=== PATIENT | male | born 1945 | race Caucasian/White ===

== ENCOUNTER 2018-07-08 00:33 | Emergency (ER) | payer MEDICARE ==
[~2018-07-08] VITALS: Ht 185.4 cm; Wt 106.6 kg
--- OUTSIDE RECORDS SUMMARY | 2018-07-08 00:36 | XMS REPORT | Clinical Summary ---
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 0 (LOPRESSOR) 50 MG tablet 6 Active clopidogrel (PLAVIX) 75 75 mg. 0 mg tablet 6 Active Problems Problem Noted Date Closed nondisplaced fracture of distal phalanx of thumb 12/14/2015 Social History Date Tobacco Use Types Packs/Day Years Used Never Assessed Sex Assigned at Date Recorded Not on file Industry Job Start Date Occupation Not on file Not on file Not on file Travel End Travel History Travel Start No recent travel history available. Last Filed Vital Signs Not on file Plan of Treatment Health Maintenance Due Date Last Done Comments COLON CANCER SCREENING 05/19/1995 SHINGLES VACCINES (#1) 05/19/1995 65+ PNEUMOCOCCAL VACCINE 2010 (1 of 2 - PCV13) PNEUMOCOCCAL 2010 POLYSACCHARIDE VACCINE AGE 65 AND OVER INFLUENZA VACCINE 10/08/2018 Results Not on fileafter 07/07/2017 Insurance Payer Benefit Subscriber ID Type Phone Address Plan / Group WORKERS COMP MISC xxxxxxxxx Workers WORKER'S Comp COMP Guarantor Name Account Relation to Date of Phone Billing Address Type Patient [id number] Workers Employer 1945 [address] (Home) [place] [address] Yan Culp Personal/F Self 1945 [address] (Home) [place] [address] Advance Directives Patient has advance care planning documents on file. For more information, ramírez jaquez contact: Rajeev Soto [address] [place] [id number]
--- OUTSIDE RECORDS SUMMARY | 2018-07-08 00:36 | XMS REPORT | Clinical Summary ---
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 Active folic acid (FOLVITE) 1 MG Take 1 mg by 0 tablet mouth daily. Active pantoprazole (PROTONIX) Take 40 mg by 0 40 MG tablet mouth daily. Active furosemide (LASIX) 20 MG Take 20 mg by 0 tablet mouth daily. Active Problems Problem Noted Date Subdural hematoma 01/26/2016 Social History Date Tobacco Use Types Packs/Day Years Used Never Smoker Alcohol Use Drinks/Week oz/Week Comments No Sex Assigned at Date Recorded Not on file Industry Job Start Date Occupation Not on file Not on file Not on file Travel End Travel History Travel Start No recent travel history available. Last Filed Vital Signs Not on file Plan of Treatment Not on file Results Not on fileafter 07/07/2017 Insurance Payer Benefit Subscriber ID Type Phone Address Plan / Group GENERIC WORKERS' COMP GENERIC xxxxxxx WORKERS' COMP [employer] K[employer]SEY[employer]ARE xxxxxxxxxxx MEDICARE ADV [address]a G[address]mez (Home) [place] [id number] Advance Directives For more information, please contact: [facility] [address] [place], [place] [id number] Date Inactivated Comments Code Status Date Activated 01/29/2016 5:37 PM Full Code 01/26/2016 2:59 PM This code status was determined by: Patient
--- OUTSIDE RECORDS SUMMARY | 2018-07-08 00:37 | XMS REPORT | Summary of Care ---
Author Author [facility] Organization [facility] Address Unknown Phone Unavailable Encounter SONIA Bowling(CHAYITO) [id number] Date(s): 01/02/16 - 01/03/16 [facility] [address] [place] [address]- Final: Subdural hemorrhage due to injury Discharge Disposition: Home or Self Care Attending Physician: Marcella Kidd MD Admitting Physician: Marcella Kidd MD Referring Physician: Warren Posadas DO Vital Signs 1 2 3 Most recent to oldest [Reference Range]: 185.42 cm (01/02/16 2:58 PM) Height 97.3 DegF (01/03/16 3:41 PM) 99.3 DegF *HI* (01/03/16 12:00 PM) 98.2 DegF (01/03/16 7:45 AM) Temperature Oral [96.4-99.1 DegF] 154/74 mmHg *HI* (01/03/16 3:41 PM) 159/73 mmHg *HI* (01/03/16 12:00 PM) 157/80 mmHg *HI* (01/03/16 7:45 AM) Blood Pressure [90-140/60-90 mmHg] 20 BRMIN (01/03/16 3:41 PM) 20 BRMIN (01/03/16 12:00 PM) 20 BRMIN (01/03/16 7:45 AM) Respiratory Rate [14-20 BRMIN] 73 bpm (01/03/16 3:41 PM) 76 bpm (01/03/16 12:00 PM) 75 bpm (01/03/16 7:45 AM) Peripheral Pulse Rate [60-100 bpm] 104 kg (01/02/16 2:58 PM) Weight 30.25 m2 (01/02/16 2:58 PM) Body Mass Index Problem List Condition Effective Dates Status Health Status Informant Anxiety(Confirmed) Active Coronary Active arteriosclerosis(Con firmed) Diabetes Active mellitus(Confirmed) H/O: 2012 Active stroke(Confirmed) Hypertension(Confirm Active ed) Neuropathy(Confirmed Active ) Hx of Active CABG(Confirmed) Subacute subdural 01/02/16 Active hematoma(Confirmed) Allergies, Adverse Reactions, Alerts Substance Reaction Severity Status NKDA Active Medications ALPRAZOLam 0.25 mg oral tablet 0.25 mg=1 tab, PO, TID, PRN Sleep, # 30 tab, 0 Refill(s) Start Date: 01/02/16 Stop Date: 01/12/16 Status: Ordered ALPRAZOLam 0.25 mg oral tablet 0.25 mg, 1 tab, Route: PO, Drug form: TAB, TID, Dosing Weight 104, kg, PRN Sleep , Start date: 01/03/16 14:54:00 CDT, Duration: 30 day, Stop date: 02/02/16 14:53 :00 LINE APPLIANCE ASSEMBLER Start Date: 01/03/16 Stop Date: 01/03/16 Status: Discontinued BD Normal Saline Flush 10 mL, Route: IVP, Drug Form: INJ, PRN, PRN Line Flush, Start date: 01/02/16 15: 16:00 CDT, Duration: 30 day, Stop date: 02/01/16 14:15:00 LINE APPLIANCE ASSEMBLER Notes: (Same as: BD Posiflush) Start Date: 01/02/16 Stop Date: 01/03/16 Status: Discontinued calcium carbonate 500 mg (200 mg elemental calcium) oral tablet 1,000 mg, 2 tab, Route: PO, Drug form: CHEWTAB, PRN, Dosing Weight 104, kg, PRN Abnormal Lab Result, FOR ICU USE ONLY, Start date: 01/02/16 15:52:00 CDT, Durati on: 30 day, Stop date: 02/01/16 14:51:00 LINE APPLIANCE ASSEMBLER Notes: (Same As: Tums)Calcium Carbonate 500 xy=518 mg elemental calcium Dose=_ mg calcium carbonate ( mg elemental calcium) Start Date: 01/02/16 Stop Date: 01/03/16 Status: Discontinued calcium carbonate 500 mg (200 mg elemental calcium) oral tablet 500 mg, 1 tab, Route: PO, Drug form: CHEWTAB, PRN, Dosing Weight 104, kg, PRN Ab normal Lab Result, FOR ICU USE ONLY, Start date: 01/02/16 15:52:00 CDT, Duration : 30 day, Stop date: 02/01/16 14:51:00 LINE APPLIANCE ASSEMBLER Notes: (Same As: Tums)Calcium Carbonate 500 kh=251 mg elemental calcium Dose=_ mg calcium carbonate ( mg elemental calcium) Start Date: 01/02/16 Stop Date: 01/03/16 Status: Discontinued calcium gluconate 1 gm, 50 mL, Route: IVPB, Drug form: INJ, PRN, Dosing Weight 104, kg, PRN Abnorm al Lab Result, Start date: 01/02/16 15:52:00 CDT, Duration: 30 day, Stop date: 04/02/15 14:51:00 LINE APPLIANCE ASSEMBLER, FOR ICU USE ONLY Notes: WASTE: F/P - Sink; E - Municipal Trash Bin Start Date: 01/02/16 Stop Date: 01/03/16 Status: Discontinued Dextrose 50% Syringe 25 gm, 50 mL, Route: IVP, Drug Form: INJ, Dosing Weight 104, kg, PRN, PRN Blood Glucose Results, Start date: 01/02/16 15:52:00 CDT, Duration: 30 day, Stop date: 02/01/16 14:51:00 LINE APPLIANCE ASSEMBLER Start Date: 01/02/16 Stop Date: 01/03/16 Status: Discontinued Dextrose 50% Syringe 12.5 gm, 25 mL, Route: IVP, Drug Form: INJ, Dosing Weight 104, kg, PRN, PRN Bloo d Glucose Results, Start date: 01/02/16 15:52:00 CDT, Duration: 30 day, Stop mary e: 02/01/16 14:51:00 LINE APPLIANCE ASSEMBLER Start Date: 01/02/16 Stop Date: 01/03/16 Status: Discontinued furosemide 20 mg oral tablet 20 mg=1 tab, PO, BID, 0 Refill(s) Start Date: 01/02/16 Status: Ordered furosemide 20 mg oral tablet 20 mg, 1 tab, Route: PO, Drug form: TAB, BID, Dosing Weight 104, kg, Start date: 01/03/16 17:00:00 CDT, Duration: 30 day, Stop date: 02/02/16 9:00:00 LINE APPLIANCE ASSEMBLER Notes: (Same as: Lasix) May cause GI upset. Give with food or milk. Start Date: 01/03/16 Stop Date: 01/03/16 Status: Discontinued glucagon 1 mg, Route: IM, Drug form: PDR/INJ, PRN, Dosing Weight 104, kg, PRN Blood Gluco se Results, Start date: 01/02/16 15:52:00 CDT, Duration: 30 day, Stop date: 01/09 06/23 14:51:00 LINE APPLIANCE ASSEMBLER Start Date: 01/02/16 Stop Date: 01/03/16 Status: Discontinued hydrALAZINE 10 mg, 0.5 mL, Route: IVP, Drug form: INJ, Q4H, Dosing Weight 104, kg, PRN Victor neo BP, SBP >150, Start date: 01/02/16 15:54:00 CDT, Duration: 30 day, Stop date: 02/01/16 15:53:00 LINE APPLIANCE ASSEMBLER, HTN Notes: (Same as: Apresoline)Push over 5 minutes Start Date: 01/02/16 Stop Date: 01/03/16 Status: Discontinued insulin aspart 2 unit, 0.02 mL, Route: SUB-Q, Drug form: SOLN, TID-Before Meals, Dosing Weight 104, kg, PRN Blood Glucose Results, Start date: 01/02/16 15:52:00 CDT, Duration: 30 day, Stop date: 02/01/16 15:51:00 LINE APPLIANCE ASSEMBLER Notes: Roll in palms of hands gently; Do not shake vigorously. (Same as: Amari Echevarria)"single patient use only"WASTE: F/P - Black; E - Municipal Trash Bin Stable f or 28 days at room temperature.Expires in days from Date Start Date: 01/02/16 Stop Date: 01/03/16 Status: Discontinued insulin aspart 6 unit, 0.06 mL, Route: SUB-Q, Drug form: SOLN, TID-Before Meals, Dosing Weight 104, kg, PRN Blood Glucose Results, Start date: 01/02/16 15:52:00 CDT, Duration: 30 day, Stop date: 02/01/16 15:51:00 LINE APPLIANCE ASSEMBLER Notes: Roll in palms of hands gently; Do not shake vigorously. (Same as: NovoARABELLA Echevarria)"single patient use only"WASTE: F/P - Black; E - Municipal Trash Bin Stable f or 28 days at room temperature.Expires in days from Date Start Date: 01/02/16 Stop Date: 01/03/16 Status: Discontinued insulin aspart 4 unit, 0.04 mL, Route: SUB-Q, Drug form: SOLN, TID-Before Meals, Dosing Weight 104, kg, PRN Blood Glucose Results, Start date: 01/02/16 15:52:00 CDT, Duration: 30 day, Stop date: 02/01/16 15:51:00 LINE APPLIANCE ASSEMBLER Notes: Roll in palms of hands gently; Do not shake vigorously. (Same as: NovoARABELLA Echevarria)"single patient use only"WASTE: F/P - Black; E - Municipal Trash Bin Stable f or 28 days at room temperature.Expires in days from Date Start Date: 01/02/16 Stop Date: 01/03/16 Status: Discontinued insulin aspart 10 unit, 0.1 mL, Route: SUB-Q, Drug form: SOLN, TID-Before Meals, Dosing Weight 104, kg, PRN Blood Glucose Results, Start date: 01/02/16 15:52:00 CDT, Duration: 30 day, Stop date: 02/01/16 15:51:00 LINE APPLIANCE ASSEMBLER Notes: Roll in palms of hands gently; Do not shake vigorously. (Same as: NovoARABELLA Echevarria)"single patient use only"WASTE: F/P - Black; E - Municipal Trash Bin Stable f or 28 days at room temperature.Expires in days from Date Start Date: 01/02/16 Stop Date: 01/03/16 Status: Discontinued insulin aspart 8 unit, 0.08 mL, Route: SUB-Q, Drug form: SOLN, TID-Before Meals, Dosing Weight 104, kg, PRN Blood Glucose Results, Start date: 01/02/16 15:52:00 CDT, Duration: 30 day, Stop date: 02/01/16 15:51:00 LINE APPLIANCE ASSEMBLER Notes: Roll in palms of hands gently; Do not shake vigorously. (Same as: Amari Echevarria)"single patient use only"WASTE: F/P - Black; E - Municipal Trash Bin Stable f or 28 days at room temperature.Expires in days from Date Start Date: 01/02/16 Stop Date: 01/03/16 Status: Discontinued labetalol 10 mg, 2 mL, Route: IV, Drug form: INJ, Q1H, Dosing Weight 104, kg, PRN Elevated BP, SBP >150, Start date: 01/02/16 15:54:00 CDT, Duration: 30 day, Stop date: 02/01/16 14:53:00 LINE APPLIANCE ASSEMBLER, HTN Notes: (Same as: Normodyne, Trandate)Push over 2 minutes Give bolus over 2-3 mi nutes. Start Date: 01/02/16 Stop Date: 01/03/16 Status: Discontinued lansoprazole 30 mg, 1 cap, Route: PO, Drug form: DRC, Daily, Dosing Weight 104, kg, Start mary e: 01/04/16 9:00:00 CDT, Duration: 30 day, Stop date: 02/02/16 9:00:00 LINE APPLIANCE ASSEMBLER Notes: (Same as:Prevacid)Take 1 hour before or 2 hours after meal; "Do Not Crush " Start Date: 01/04/16 Stop Date: 01/03/16 Status: Canceled lansoprazole 30 mg oral delayed release capsule 30 mg=1 cap, PO, Daily, # 30 cap, 0 Refill(s) Start Date: 01/02/16 Status: Ordered levETIRAcetam 500 mg, 1 tab, Route: PO, Drug form: TAB, Q12H, Dosing Weight 104, kg, Start mary e: 01/03/16 9:00:00 CDT, Duration: 30 day, Stop date: 02/01/16 21:00:00 LINE APPLIANCE ASSEMBLER Notes: (Same as:Keppra) Start Date: 01/03/16 Stop Date: 01/03/16 Status: Discontinued levETIRAcetam + sodium chloride 0.9% INJ 100 mL 500 mg, Route: IVPB, ONCE, Dosing Weight 104, kg, Start date: 01/02/16 15:10:00 CDT, Stop date: 01/02/16 15:10:00 CDT Notes: Same as KeppraMix with 100 mL NS, LR or D5W MEDICATION WASTE Prod uct Size: 500 mgProduct Wasted: _0__ mg Start Date: 01/02/16 Stop Date: 01/02/16 Status: Completed levETIRAcetam 500 mg oral tablet 500 mg=1 tab, PO, Q12H, # 60 tab, 1 Refill(s) Start Date: 01/03/16 Status: Ordered magnesium oxide 800 mg, 2 tab, Route: PO, Drug form: TAB, PRN, Dosing Weight 104, kg, PRN Abnorm al Lab Result, FOR ICU USE ONLY, Start date: 01/02/16 15:52:00 CDT, Duration: 30 day, Stop date: 02/01/16 14:51:00 LINE APPLIANCE ASSEMBLER Notes: (Same as: Mag-Ox 400)Magnesium oxide [id number] elemental magnesiumDose= ____mg magnesium oxide (___mg elemental magnesium) Start Date: 01/02/16 Stop Date: 01/03/16 Status: Discontinued magnesium sulfate 2 gm, 50 mL, Route: IVPB, Drug form: INJ, PRN, Dosing Weight 104, kg, PRN Abnorm al Lab Result, Start date: 01/02/16 15:52:00 CDT, Duration: 30 day, Stop date: 04/02/15 14:51:00 LINE APPLIANCE ASSEMBLER, FOR ICU USE ONLY Notes: WASTE: F/P - Sink; E - Municipal Trash Bin Start Date: 01/02/16 Stop Date: 01/03/16 Status: Discontinued metoprolol tartrate 50 mg, 1 tab, Route: PO, Drug form: TAB, Q12H, Dosing Weight 104, kg, Start date : 01/03/16 21:00:00 CDT, Duration: 30 day, Stop date: 02/02/16 9:00:00 LINE APPLIANCE ASSEMBLER Notes: (Same as: Lopressor) Start Date: 01/03/16 Stop Date: 01/03/16 Status: Canceled MiraLax 17 gm, 1 pkt, Route: PO, Drug form: PWDR, Daily, Dosing Weight 104, kg, Start da te: 01/03/16 9:00:00 CDT, Duration: 30 day, Stop date: 02/01/16 9:00:00 LINE APPLIANCE ASSEMBLER Notes: Dissolve in 8 oz of water or juice.(Same as: Miralax) Start Date: 01/03/16 Stop Date: 01/03/16 Status: Discontinued potassium chloride 20 mEq, 1 tab, Route: PO, Drug form: ERTAB, PRN, Dosing Weight 104, kg, PRN Abno rmal Lab Result, Start date: 01/02/16 15:52:00 CDT, Duration: 30 day, Stop date: 02/01/16 14:51:00 LINE APPLIANCE ASSEMBLER, FOR ICU USE ONLY Notes: (Same as: K-Dur 20)"Do Not Crush" With food and full glass of water Start Date: 01/02/16 Stop Date: 01/03/16 Status: Discontinued potassium chloride 20 mEq, 15 mL, Route: NJ, Drug form: LIQ, PRN, Dosing Weight 104, kg, PRN Abnorm al Lab Result, Start date: 01/02/16 15:52:00 CDT, Duration: 30 day, Stop date: 04/02/15 14:51:00 LINE APPLIANCE ASSEMBLER, FOR ICU USE ONLY Notes: (Same as: Potassium Chloride) Start Date: 01/02/16 Stop Date: 01/03/16 Status: Discontinued potassium chloride 10 mEq, 100 mL, Route: IVPB, Drug form: INJ, PRN, Dosing Weight 104, kg, PRN Abn ormal Lab Result, Via peripheral line, Start date: 01/02/16 15:52:00 CDT, Durati on: 30 day, Stop date: 02/01/16 14:51:00 LINE APPLIANCE ASSEMBLER, FOR ICU USE ONLY Notes: Infuse at a rate of 10 mEq/hr.(Same as: KCL) Start Date: 01/02/16 Stop Date: 01/03/16 Status: Discontinued potassium chloride 20 mEq, 100 mL, Route: IVPB, Drug form: INJ, PRN, Dosing Weight 104, kg, PRN Abn ormal Lab Result, Via central line, Start date: 01/02/16 15:52:00 CDT, Duration: 30 day, Stop date: 02/01/16 14:51:00 LINE APPLIANCE ASSEMBLER, FOR ICU USE ONLY Notes: (Same as: KCL) Infuse no faster than 10 mEq/hr if given peripherally. Start Date: 01/02/16 Stop Date: 01/03/16 Status: Discontinued potassium phosphate 30 mmol, 250 mL, Route: IVPB, Drug form: INJ, PRN, Dosing Weight 104, kg, PRN Ab normal Lab Result, Start date: 01/02/16 15:52:00 CDT, Duration: 30 day, Stop mary e: 02/01/16 14:51:00 LINE APPLIANCE ASSEMBLER, FOR ICU USE ONLY Notes: (Same as: K Phosphate.) Start Date: 01/02/16 Stop Date: 01/03/16 Status: Discontinued potassium phosphate 15 mmol, 250 mL, Route: IVPB, Drug form: INJ, PRN, Dosing Weight 104, kg, PRN Ab normal Lab Result, Start date: 01/02/16 15:52:00 CDT, Duration: 30 day, Stop mary e: 02/01/16 14:51:00 LINE APPLIANCE ASSEMBLER, FOR ICU USE ONLY Notes: (Same as: K Phosphate) Start Date: 01/02/16 Stop Date: 01/03/16 Status: Discontinued potassium phosphate + sodium chloride 0.9% INJ 250 mL 45 mmol, 15 mL, Route: IVPB, PRN, Dosing Weight 104, kg, PRN Abnormal Lab Result , Start date: 01/02/16 15:52:00 CDT, Duration: 30 day, Stop date: 02/01/16 14:51 :00 LINE APPLIANCE ASSEMBLER, FOR ICU USE ONLY Notes: (Same as: K Phosphate.) 1 mMol phoshate has 1.47 mEq potassium Infuse o jeffry 4 hours Start Date: 01/02/16 Stop Date: 01/03/16 Status: Discontinued potassium phosphate-sodium phosphate 250 mg-280 mg-160 mg oral powder for recons titution 2 pkt, Route: PO, Drug Form: PDR/REC, Dosing Weight 104, kg, PRN, PRN Abnormal L ab Result, FOR ICU USE ONLY, Start date: 01/02/16 15:52:00 CDT, Duration: 30 day , Stop date: 02/01/16 14:51:00 LINE APPLIANCE ASSEMBLER Notes: (Same as: Phos-NaK) Each 1.5 gm pkt has 250mg phosphorous. Mix w/2.5oz w ater and stir. Start Date: 01/02/16 Stop Date: 01/03/16 Status: Discontinued senna 8.6 mg, 1 tab, Route: PO, Drug Form: TAB, Dosing Weight 104, kg, Daily, Start da te: 01/03/16 9:00:00 CDT, Duration: 30 day, Stop date: 02/01/16 9:00:00 LINE APPLIANCE ASSEMBLER Notes: (Same as: Senokot) Start Date: 01/03/16 Stop Date: 01/03/16 Status: Discontinued sodium chloride 0.9% 1000 ml INJ 1,000 mL 1,000 mL, Rate: 75 ml/hr, Infuse over: 13.3 hr, Route: IV, Dosing Weight 104 kg, Total Volume: 1,000, Start date: 01/02/16 15:10:00 CDT, Duration: 30 day, Stop date: 02/01/16 15:09:00 LINE APPLIANCE ASSEMBLER Start Date: 01/02/16 Stop Date: 01/03/16 Status: Discontinued Sodium Chloride 0.9% IV 250 mL, Route: IVPB, Start date: 01/02/16 15:16:00 CDT, Duration: 30 day, Stop d ate: 02/01/16 14:15:00 LINE APPLIANCE ASSEMBLER, PRN Line Flush Start Date: 01/02/16 Stop Date: 01/03/16 Status: Discontinued sodium phosphate 15 mmol, 250 mL, Route: IVPB, Drug form: INJ, PRN, Dosing Weight 104, kg, PRN Ab normal Lab Result, Start date: 01/02/16 15:52:00 CDT, Duration: 30 day, Stop mary e: 02/01/16 14:51:00 LINE APPLIANCE ASSEMBLER, FOR ICU USE ONLY Start Date: 01/02/16 Stop Date: 01/03/16 Status: Discontinued sodium phosphate 30 mmol, 250 mL, Route: IVPB, Drug form: INJ, PRN, Dosing Weight 104, kg, PRN Ab normal Lab Result, Start date: 01/02/16 15:52:00 CDT, Duration: 30 day, Stop mary e: 02/01/16 14:51:00 LINE APPLIANCE ASSEMBLER, FOR ICU USE ONLY Start Date: 01/02/16 Stop Date: 01/03/16 Status: Discontinued sodium phosphate + sodium chloride 0.9% INJ 250 mL 45 mmol, 15 mL, Route: IVPB, PRN, Dosing Weight 104, kg, PRN Abnormal Lab Result , Start date: 01/02/16 15:52:00 CDT, Duration: 30 day, Stop date: 02/01/16 14:51 :00 LINE APPLIANCE ASSEMBLER, FOR ICU USE ONLY Start Date: 01/02/16 Stop Date: 01/03/16 Status: Discontinued tramadol 50 mg oral tablet 50 mg, 1 tab, Route: PO, Drug form: TAB, Q6H, Dosing Weight 104, kg, PRN Pain Sc ore 4-6, Start date: 01/03/16 14:55:00 CDT, Duration: 30 day, Stop date: 6 14:54:00 LINE APPLIANCE ASSEMBLER Notes: Not to exceed 400mg/day. (Same As: Ultram) Start Date: 01/03/16 Stop Date: 01/03/16 Status: Discontinued tramadol 50 mg oral tablet 50 mg=1 tab, PO, Q6H, PRN Pain, # 40 tab, 0 Refill(s) Start Date: 01/02/16 Stop Date: 01/12/16 Status: Ordered Tylenol 650 mg, 2 tab, Route: PO, Drug form: TAB, Q6H, Dosing Weight 104, kg, PRN Pain S core 1-3, Start date: 01/02/16 15:53:00 CDT, Duration: 30 day, Stop date: 15:52:00 LINE APPLIANCE ASSEMBLER Notes: Do not exceed 4 gm/day. (Same as: Tylenol) Start Date: 01/02/16 Stop Date: 01/03/16 Status: Discontinued Results BLOOD BANK RESULTS Most recent to 1 2 oldest [Reference Range]: ABO/Rh O POS *Unknown* (01/02/16 3:38 PM) Antibody Scrn Negative (01/02/16 3:38 PM) ELECTROLYTES Most recent to 1 2 oldest [Reference Range]: Sodium Lvl [135-145 141 mEq/L 140 mEq/L mEq/L] (01/03/16 3:03 AM) (01/02/16 3:38 PM) Potassium Lvl 3.8 mEq/L 3.6 mEq/L [3.5-5.1 mEq/L] (01/03/16 3:03 AM) (01/02/16 3:38 PM) Chloride Lvl [95-109 106 mEq/L 105 mEq/L mEq/L] (01/03/16 3:03 AM) (01/02/16 3:38 PM) CO2 [24-32 mEq/L] 26 mEq/L 26 mEq/L (01/03/16 3:03 AM) (01/02/16 3:38 PM) AGAP [10.0-20.0 12.8 mEq/L 12.6 mEq/L mEq/L] (01/03/16 3:03 AM) (01/02/16 3:38 PM) CHEM PANEL Most recent to 1 2 oldest [Reference Range]: Creatinine Lvl 1.20 mg/dL 1.20 mg/dL [0.50-1.40 mg/dL] (01/03/16 3:03 AM) (01/02/16 3:38 PM) eGFR 61 mL/min/1.73m2 1 61 mL/min/1.73m2 2 *NA* *NA* (01/03/16 3:03 AM) (01/02/16 3:38 PM) BUN [7-22 mg/dL] 15 mg/dL 13 mg/dL (01/03/16 3:03 AM) (01/02/16 3:38 PM) Glucose Lvl [70-99 156 mg/dL 199 mg/dL mg/dL] *HI* *HI* (01/03/16 3:03 AM) (01/02/16 3:38 PM) Total Protein 6.8 g/dL [6.4-8.4 g/dL] (01/02/16 3:38 PM) Albumin Lvl [3.5-5.0 3.3 g/dL g/dL] *LOW* (01/02/16 3:38 PM) Globulin [2.7-4.2 3.5 g/dL g/dL] (01/02/16 3:38 PM) A/G Ratio [0.7-1.6] 0.9 (01/02/16 3:38 PM) Calcium Lvl 8.3 mg/dL 8.3 mg/dL [8.5-10.5 mg/dL] *LOW* *LOW* (01/03/16 3:03 AM) (01/02/16 3:38 PM) Phosphorus [2.5-4.5 2.8 mg/dL 2.7 mg/dL mg/dL] (01/03/16 3:03 AM) (01/02/16 3:38 PM) Magnesium Lvl 1.8 mg/dL 1.7 mg/dL [1.8-2.4 mg/dL] (01/03/16 3:03 AM) *LOW* (01/02/16 3:38 PM) ALT [0-65 unit/L] 21 unit/L (01/02/16 3:38 PM) AST [0-37 unit/L] 15 unit/L (01/02/16 3:38 PM) Alk Phos [39-136 101 unit/L unit/L] (01/02/16 3:38 PM) Bili Total [0.2-1.3 0.3 mg/dL mg/dL] (01/02/16 3:38 PM) Bili Direct [0.0-0.3 <0.1 mg/dL mg/dL] (01/02/16 3:38 PM) Bili Indirect Unable to Calculate [0.0-1.0] *NA* (01/02/16 3:38 PM) 1Result Comment: The eGFR is calculated using the CKD-EPI formula. In most young, healthy individuals the eGFR will be >90 mL/min/1.73m2. The eGFR declines with age. An eGFR of 60-89 may be normal in some populations, particularly the elderly, for whom the CKD-EPI formula has not been extensively validated. Use of the eGFR is not recommended in the following populations: Individuals with unstable creatinine concentrations, including patients and those with serious co-morbid conditions. Patients with extremes in muscle mass or diet. The data above are obtained from the National Kidney Disease Education Program ( NKDEP) which additionally recommends that when the eGFR is used in patients with extremes of body mass index for purposes of drug dosing, the eGFR should be mul tiplied by the estimated BMI. 2Result Comment: The eGFR is calculated using the CKD-EPI formula. In most young, healthy individuals the eGFR will be >90 mL/min/1.73m2. The eGFR declines with age. An eGFR of 60-89 may be normal in some populations, particularly the elderly, for whom the CKD-EPI formula has not been extensively validated. Use of the eGFR is not recommended in the following populations: Individuals with unstable creatinine concentrations, including patients and those with serious co-morbid conditions. Patients with extremes in muscle mass or diet. The data above are obtained from the National Kidney Disease Education Program ( NKDEP) which additionally recommends that when the eGFR is used in patients with extremes of body mass index for purposes of drug dosing, the eGFR should be mul tiplied by the estimated BMI. PARATHYROID PROFILE Most recent to 1 2 oldest [Reference Range]: Ca Ion WB [1.05-1.25 1.15 mMol/L 1.13 mMol/L mMol/L] (01/03/16 3:03 AM) (01/02/16 3:38 PM) Ca Norm WB 1.10 mMol/L 1.11 mMol/L [1.05-1.25 mMol/L] (01/03/16 3:03 AM) (01/02/16 3:38 PM) URINE AND STOOL Most recent to 1 2 oldest [Reference Range]: UA Turbidity [Clear] Clear (01/02/16 5:14 PM) UA Color [Yellow] Light Yellow *NA* (01/02/16 5:14 PM) UA pH [5.0-8.0] 5.0 (01/02/16 5:14 PM) UA Spec Grav 1.011 [<=1.030] (01/02/16 5:14 PM) UA Glucose [Negative 50 mg/dL mg/dL] *ABN* (01/02/16 5:14 PM) UA Blood [Negative] Negative (01/02/16 5:14 PM) UA Ketones [Negative Negative mg/dL mg/dL] *NA* (01/02/16 5:14 PM) UA Protein [Negative Negative mg/dL mg/dL] (01/02/16 5:14 PM) UA Urobilinogen <=1.0 mg/dL [0.1-1.0 mg/dL] *NA* (01/02/16 5:14 PM) UA Bili [Negative] Negative *NA* (01/02/16 5:14 PM) UA Leuk Est Negative [Negative] (01/02/16 5:14 PM) UA Nitrite Negative [Negative] (01/02/16 5:14 PM) UA WBC [0-5 /HPF] <1 /HPF (01/02/16 5:14 PM) UA RBC [0-2 /HPF] <1 /HPF (01/02/16 5:14 PM) UA Sq Epi [Few /LPF] Occasional /LPF *NA* (01/02/16 5:14 PM) UA Mucus [None Seen Few /LPF /LPF] *NA* (01/02/16 5:14 PM) HEMATOLOGY Most recent to 1 2 oldest [Reference Range]: WBC [3.7-10.4 K/CMM] 5.5 K/CMM 5.7 K/CMM (01/03/16 3:03 AM) (01/02/16 3:38 PM) RBC [4.70-6.10 4.38 M/CMM 4.62 M/CMM M/CMM] *LOW* *LOW* (01/03/16 3:03 AM) (01/02/16 3:38 PM) Hgb [14.0-18.0 g/dL] 13.0 g/dL 13.3 g/dL *LOW* *LOW* (01/03/16 3:03 AM) (01/02/16 3:38 PM) Hct [42.0-54.0 %] 37.6 % 39.6 % *LOW* *LOW* (01/03/16 3:03 AM) (01/02/16 3:38 PM) MCV [80.0-94.0 fL] 85.9 fL 85.7 fL (01/03/16 3:03 AM) (01/02/16 3:38 PM) MCH [27.0-31.0 pg] 29.6 pg 28.8 pg (01/03/16 3:03 AM) (01/02/16 3:38 PM) MCHC [32.0-36.0 34.5 g/dL 33.6 g/dL g/dL] (01/03/16 3:03 AM) (01/02/16 3:38 PM) RDW [11.5-14.5 %] 12.7 % 12.7 % (01/03/16 3:03 AM) (01/02/16 3:38 PM) Platelet [133-450 149 K/CMM 149 K/CMM K/CMM] (01/03/16 3:03 AM) (01/02/16 3:38 PM) MPV [7.4-10.4 fL] 9.6 fL 8.9 fL (01/03/16 3:03 AM) (01/02/16 3:38 PM) Segs [45.0-75.0 %] 55.5 % 58.4 % (01/03/16 3:03 AM) (01/02/16 3:38 PM) Lymphocytes 30.8 % 30.2 % [20.0-40.0 %] (01/03/16 3:03 AM) (01/02/16 3:38 PM) Monocytes [2.0-12.0 10.7 % 9.0 % %] (01/03/16 3:03 AM) (01/02/16 3:38 PM) Eosinophils [0.0-4.0 2.6 % 2.0 % %] (01/03/16 3:03 AM) (01/02/16 3:38 PM) Basophils [0.0-1.0 0.4 % 0.4 % %] (01/03/16 3:03 AM) (01/02/16 3:38 PM) Segs-Bands # 3.1 K/CMM 3.3 K/CMM [1.5-8.1 K/CMM] (01/03/16 3:03 AM) (01/02/16 3:38 PM) Lymphocytes # 1.7 K/CMM 1.7 K/CMM [1.0-5.5 K/CMM] (01/03/16 3:03 AM) (01/02/16 3:38 PM) Monocytes # [0.0-0.8 0.6 K/CMM 0.5 K/CMM K/CMM] (01/03/16 3:03 AM) (01/02/16 3:38 PM) Eosinophils # 0.1 K/CMM 0.1 K/CMM [0.0-0.5 K/CMM] (01/03/16 3:03 AM) (01/02/16 3:38 PM) Basophils # [0.0-0.2 0.0 K/CMM 0.0 K/CMM K/CMM] (01/03/16 3:03 AM) (01/02/16 3:38 PM) PT [12.0-14.7 13.9 seconds seconds] (01/02/16 3:38 PM) INR [0.85-1.17] 1.05 (01/02/16 3:38 PM) PTT [22.9-35.8 32.6 seconds seconds] (01/02/16 3:38 PM) BACTERIAL - SEROLOGY Most recent to 1 2 oldest [Reference Range]: MRSA by PCR Negative (01/02/16 4:13 PM) Immunizations No data available for this section Procedures Procedure Date Related Diagnosis Body Site CABG - Coronary artery bypass graft Tonsillectomy Social History Social History Type Response Substance Abuse Use: None. Alcohol Never Smoking Status Never smoker; Exposure to Tobacco Smoke None; Cigarette Smoking Last 365 Days No; Reg Smoking Cessation Counseling No Assessment and Plan Extracted from: Title: Neuro ICU Admission H&P * Author: Hong Grimaldo MD Date: 01/02/16 Impression and Plan 70yo gentleman with bilateral chronic SDH. IMP Subdural hematoma Plan Neuro - SBP <150 - Keppra [id number] - Repeat CTH now - PT/OT Cardiac - Hx of CAD s/p CABG - SBP <150 - Hydralazine/Labetalol PRN - Echo - EKG - Cardiac enzymes Resp - Monitor on RA GI - Bowel regimen - NPO for now, if CTH stable, will advance diet Renal - BMP now - Monitor UOP - No dorsey - NS @ 75/hr ID - Afeb - No atbx Heme - CBC - Coags - bringing medications. Pt stated he takes a blood thinner "occasionally" and was started on it to prevent stroke Endo - SSI PRN - Hx DM, takes PO med at home MSK - NEO - SCD Dispo Admit to neuro ICU
--- OUTSIDE RECORDS SUMMARY | 2018-07-08 00:37 | XMS REPORT | Summary of Care ---
Author Author [facility] Organization [facility] Address Unknown Phone Unavailable Encounter SONIA Bowling(CHAYITO) [phone] Date(s): 01/02/16 - 01/02/16 [facility] [address] [place] [address]- Discharge Disposition: Other Healthcare Facility Attending Physician: Warren Posadas DO Vital Signs 1 2 3 Most recent to oldest [Reference Range]: 185.42 cm (01/02/16 9:58 AM) Height 98.0 DegF (01/02/16 9:58 AM) Temperature Oral [96.4-99.1 DegF] 190/91 mmHg *HI* (01/02/16 1:32 PM) 158/72 mmHg *HI* (01/02/16 12:25 PM) 179/72 mmHg *HI* (01/02/16 11:55 AM) Blood Pressure [90-140/60-90 mmHg] 18 BRMIN (01/02/16 1:32 PM) 18 BRMIN (01/02/16 12:25 PM) 18 BRMIN (01/02/16 11:55 AM) Respiratory Rate [14-20 BRMIN] 82 bpm (01/02/16 9:58 AM) Peripheral Pulse Rate [60-100 bpm] 106.818 kg (01/02/16 9:58 AM) Weight 31.07 m2 (01/02/16 9:58 AM) Body Mass Index Problem List Condition Effective Dates Status Health Status Informant Anxiety(Confirmed) Active Coronary Active arteriosclerosis(Con firmed) Diabetes Active mellitus(Confirmed) H/O: 2012 Active stroke(Confirmed) Hypertension(Confirm Active ed) Neuropathy(Confirmed Active ) Hx of Active CABG(Confirmed) Subacute subdural 01/02/16 Active hematoma(Confirmed) Allergies, Adverse Reactions, Alerts Substance Reaction Severity Status NKDA Active Medications labetalol 20 mg, Route: IVP, Drug form: INJ, ONCE, Dosing Weight 106.818, kg, Priority: ST AT, Start date: 01/02/16 13:33:00 CDT, Stop date: 01/02/16 13:33:00 CDT Start Date: 01/02/16 Stop Date: 01/02/16 Status: Completed Saline Flush 0.9% 10 mL, Route: IVP, Drug Form: INJ, Dosing Weight 106.818, kg, PRN, PRN Line Flus h, Start date: 01/02/16 10:28:00 CDT, Duration: 30 day, Stop date: 02/01/16 9:27 :00 [employer]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: (Same as: BD Posiflush) Start Date: 01/02/16 Stop Date: 01/02/16 Status: Discontinued Results ELECTROLYTES Most recent to 1 oldest [Reference Range]: Sodium Lvl [135-145 138 mEq/L mEq/L] (01/02/16 10:33 AM) Potassium Lvl 3.9 mEq/L [3.5-5.1 mEq/L] (01/02/16 10:33 AM) Chloride Lvl [95-109 104 mEq/L mEq/L] (01/02/16 10:33 AM) CO2 [24-32 mEq/L] 23 mEq/L *LOW* (01/02/16 10:33 AM) AGAP [10.0-20.0 14.9 mEq/L mEq/L] (01/02/16 10:33 AM) CHEM PANEL Most recent to 1 oldest [Reference Range]: Creatinine Lvl 1.30 mg/dL [0.50-1.40 mg/dL] (01/02/16 10:33 AM) eGFR 55 mL/min/1.73m2 1 *NA* (01/02/16 10:33 AM) BUN [7-22 mg/dL] 14 mg/dL (01/02/16 10:33 AM) B/C Ratio [6-25] 11 (01/02/16 10:33 AM) Glucose Lvl [70-99 230 mg/dL mg/dL] *HI* (01/02/16 10:33 AM) Total Protein 7.4 g/dL [6.4-8.4 g/dL] (01/02/16 10:33 AM) Albumin Lvl [3.5-5.0 3.8 g/dL g/dL] (01/02/16 10:33 AM) Globulin [2.7-4.2 3.6 g/dL g/dL] (01/02/16 10:33 AM) A/G Ratio [0.7-1.6] 1.1 (01/02/16 10:33 AM) Calcium Lvl 8.7 mg/dL [8.5-10.5 mg/dL] (01/02/16 10:33 AM) ALT [0-65 unit/L] 23 unit/L (01/02/16 10:33 AM) AST [0-37 unit/L] 22 unit/L (01/02/16 10:33 AM) Alk Phos [39-136 98 unit/L unit/L] (01/02/16 10:33 AM) Bili Total [0.2-1.3 0.5 mg/dL mg/dL] (01/02/16 10:33 AM) 1Result Comment: The eGFR is calculated using [...] be mul tiplied by the estimated BMI. CARDIAC ENZYMES Most recent to 1 oldest [Reference Range]: Total CK [12-191 85 unit/L unit/L] (01/02/16 10:33 AM) CK MB [0.5-3.6 2.0 ng/mL ng/mL] (01/02/16 10:33 AM) CK MB Index 2.4 [0.0-2.5] (01/02/16 10:33 AM) Troponin-I <0.02 ng/mL [0.00-0.40 ng/mL] (01/02/16:33 AM) HEMATOLOGY Most recent to 1 oldest [Reference Range]: WBC [3.7-10.4 K/CMM] 5.0 K/CMM (01/02/16:33 AM) RBC [4.70-6.10 5.16 M/CMM M/CMM] (01/02/16: AM) Hgb [14.0-18.0 g/dL] 14.7 g/dL (01/02/16:33 AM) Hct [42.0-54.0 %] 43.8 % (01/02/16: AM) MCV [80.0-94.0 fL] 85.1 fL (01/02/16: AM) MCH [27.0-31.0 pg] 28.5 pg (01/02/16: AM) MCHC [32.0-36.0 33.5 g/dL g/dL] (01/02/16:33 AM) RDW [11.5-14.5 %] 12.9 % (01/02/16: AM) Platelet [133-450 162 K/CMM K/CMM] (01/02/16:33 AM) MPV [7.4-10.4 fL] 9.5 fL (01/02/16 10:33 AM) Segs [45.0-75.0 %] 59.7 % (01/02/16:33 AM) Lymphocytes 27.0 % [20.0-40.0 %] (01/02/16:33 AM) Monocytes [2.0-12.0 9.6 % %] (01/02/16:33 AM) Eosinophils [0.0-4.0 2.6 % %] (01/02/16:33 AM) Basophils [0.0-1.0 1.1 % %] *HI* (01/02/16 10:33 AM) Segs-Bands # 3.0 K/CMM [1.5-8.1 K/CMM] (01/02/16 10:33 AM) Lymphocytes # 1.4 K/CMM [1.0-5.5 K/CMM] (01/02/16 10:33 AM) Monocytes # [0.0-0.8 0.5 K/CMM K/CMM] (01/02/16 10:33 AM) Eosinophils # 0.1 K/CMM [0.0-0.5 K/CMM] (01/02/16 10:33 AM) Basophils # [0.0-0.2 0.1 K/CMM K/CMM] (01/02/16 10:33 AM) PT [12.0-14.7 13.4 seconds seconds] (01/02/16 10:33 AM) INR [0.85-1.17] 1.00 (01/02/16 10:33 AM) PTT [22.9-35.8 33.2 seconds seconds] (01/02/16 10:33 AM) Immunizations No data available for this section Procedures Procedure Date Related Diagnosis Body Site CABG - Coronary artery bypass graft Tonsillectomy Social History Social History Type Response Substance Abuse Use: None. Alcohol Never Smoking Status Never smoker; Exposure to Tobacco Smoke None; Cigarette Smoking Last 365 Days No; Reg Smoking Cessation Counseling No Assessment and Plan No data available for this section
--- OUTSIDE RECORDS SUMMARY | 2018-07-08 00:37 | XMS REPORT | Continuity of Care Document ---
Author Author [facility], [place] Interface Address Unknown Phone Unavailable Problems Problem Status Onset Date Classification Date Reported Comments Source Subacute subdural hematoma Active 01/02/2016 Problem 01/06/2016 [facility] SUBDURAL HEMATOMA Active 01/02/2016 [facility] HEADACHE, SUBDURAL HEMORRHAGE Active 01/02/2016 [facility] HEADACHE / BLURRY VISION Active 12/14/2015 [facility] H/O: stroke Active 03/10/2012 Problem 01/06/2016 [facility] STROKE Active 03/10/2000 [facility] Final: Subdural hemorrhage due to injury 01/06/2016 [facility] Anxiety Active Problem 01/06/2016 [facility] Coronary arteriosclerosis Active Problem 01/06/2016 [facility] Diabetes mellitus Active Problem 01/06/2016 [facility] Hypertension Active Problem 01/06/2016 [facility] Neuropathy Active Problem 01/06/2016 [facility] Hx of CABG Active Problem 01/06/2016 [facility] SUBDURAL HEMORRHAGE DUE TO INJURY Active [facility] Medications Medication Details Route Status Patient Instructions Ordering Provider Order Date Source lansoprazole 30 mg, 1 cap, Route: PO, Drug form: DRC, Daily, Dosing Weight 104, kg, Start date: 01/04/16 9:00:00 CDT, Duration: 30 day, Stop date: 02/02/16 9:00:00 CSTNotes: (Same as:Prevacid) Take 1 hour before or 2 hours after meal; "Do Not Crush" No Longer Active 01/04/2016 [facility] metoprolol tartrate 50 mg, 1 tab, Route: PO, Drug form: TAB, Q12H, Dosing Weight 104, kg, Start date: 01/03/16 21:00:00 CDT, Duration: 30 day, Stop date: 02/02/16 9:00:00 CSTNotes: (Same as: Lopressor) Inactive 01/04/2016 [facility] Furosemide 20 MG Oral Tablet 20 mg, 1 tab, Route: PO, Drug form: TAB, BID, Dosing Weight 104, kg, Start date: 01/03/16 17:00:00 CDT, Duration: 30 day, Stop date: 02/02/16 9:00:00 CSTNotes: (Same as: Lasix) May cause GI upset. Give with food or milk. Inactive 01/03/2016 [facility] Levetiracetam 500 MG Oral Tablet 500 mg=1 tab, PO, Q12H, # 60 tab, 1 Refill(s) Active 01/03/2016 [facility] tramadol hydrochloride 50 MG Oral Tablet 50 mg, 1 tab, Route: PO, Drug form: TAB, Q6H, Dosing Weight 104, kg, PRN Pain Score 4-6, Start date: 01/03/16 14:55:00 CDT, Duration: 30 day, Stop date: 02/02/16 14:54:00 CSTNotes: Not to exceed 400mg/day. (Same As: Ultram) Inactive 01/03/2016 [facility] Alprazolam 0.25 MG Oral Tablet 0.25 mg, 1 tab, Route: PO, Drug form: TAB, TID, Dosing Weight 104, kg, PRN Sleep, Start date: 01/03/16 14:54:00 CDT, Duration: 30 day, Stop date: 02/02/16 14:53:00 BARREL RIFLER Inactive 01/03/2016 [facility] Levetiracetam 500 mg, 1 tab, Route: PO, Drug form: TAB, Q12H, Dosing Weight 104, kg, Start date: 01/03/16 9:00:00 CDT, Duration: 30 day, Stop date: 02/01/16 21:00:00 CSTNotes: (Same as:Keppra) Inactive 01/03/2016 [facility] Miralax 17 gm, 1 pkt, Route: PO, Drug form: PWDR, Daily, Dosing Weight 104, kg, Start date: 01/03/16 9:00:00 CDT, Duration: 30 day, Stop date: 02/01/16 9:00:00 CSTNotes: Dissolve in 8 oz of water or juice. (Same as: Miralax) Inactive 01/03/2016 [facility] sennosides, CORRECTION 8.6 mg, 1 tab, Route: PO, Drug Form: TAB, Dosing Weight 104, kg, Daily, Start date: 01/03/16 9:00:00 CDT, Duration: 30 day, Stop date: 02/01/16 9:00:00 CSTNotes: (Same as: Senokot) Inactive 01/03/2016 [facility] Furosemide 20 MG Oral Tablet 20 mg=1 tab, PO, BID, 0 Refill(s) Active 01/02/2016 [facility] tramadol hydrochloride 50 MG Oral Tablet 50 mg=1 tab, PO, Q6H, PRN Pain, # 40 tab, 0 Refill(s) Active 01/02/2016 [facility] Alprazolam 0.25 MG Oral Tablet 0.25 mg=1 tab, PO, TID, PRN Sleep, # 30 tab, 0 Refill(s) Active 01/02/2016 [facility] lansoprazole 30 mg oral delayed release capsule 30 mg=1 cap, PO, Daily, # 30 cap, 0 Refill(s) Active 01/02/2016 [facility] Labetalol 10 mg, 2 mL, Route: IV, Drug form: INJ, Q1H, Dosing Weight 104, kg, PRN Elevated BP, SBP >150, Start date: 01/02/16 15:54:00 CDT, Duration: 30 day, Stop date: 02/01/16 14:53:00 BARREL RIFLER, HTNNotes: (Same as: Normodyne, Trandate) Push over 2 minutes Give bolus over 2-3 minutes. No Longer Active 01/02/2016 [facility] Hydralazine 10 mg, 0.5 mL, Route: IVP, Drug form: INJ, Q4H, Dosing Weight 104, kg, PRN Elevated BP, SBP >150, Start date: 01/02/16 15:54:00 CDT, Duration: 30 day, Stop date: 02/01/16 15:53:00 BARREL RIFLER, HTNNotes: (Miguel e as: Apresoline) Push over 5 minutes No Longer Active 01/02/2016 [facility] Tylenol 650 mg, 2 tab, Route: PO, Drug form: TAB, Q6H, Dosing Weight 104, kg, PRN Pain Score 1-3, Start date: 01/02/16 15:53:00 CDT, Duration: 30 day, Stop date: 02/01/16 15:52:00 CSTNotes: Do not exceed 4 gm/day. (Same as: Tylenol) No Longer Active 01/02/2016 [facility] Glucagon 1 mg, Route: IM, Drug form: PDR/INJ, PRN, Dosing Weight 104, kg, PRN Blood Glucose Results, Start date: 01/02/16 15:52:00 CDT, Duration: 30 day, Stop date: 02/01/16 14:51:00 BARREL RIFLER No Longer Active 01/02/2016 [facility] Dextrose 50% Syringe 25 gm, 50 mL, Route: IVP, Drug Form: INJ, Dosing Weight 104, kg, PRN, PRN Blood Glucose Results, Start date: 01/02/16 15:52:00 CDT, Duration: 30 day, Stop date: 02/01/16 14:51:00 BARREL RIFLER No Longer Active 01/02/2016 [facility] Insulin, Aspart, Human 2 unit, 0.02 mL, Route: SUB-Q, Drug form: SOLN, TID-Before Meals, Dosing Weight 104, kg, PRN Blood Glucose Results, Start date: 01/02/16 15:52:00 CDT, Duration: 30 day, Stop date: 02/01/16 15:51:00 CSTNotes: Roll in palms of hands gently; Do not shake vigorously. (Same as: NovoLOG) "single patient use only" WASTE: F/P - Black; E - Municipal Trash Bin Stable for 28 days at room temperature. Expires in days from Date No Longer Active 01/02/2016 [facility] Calcium Carbonate 500 MG Chewable Tablet 1,000 mg, 2 tab, Route: PO, Drug form: CHEWTAB, PRN, Dosing Weight 104, kg, PRN Abnormal Lab Result, FOR ICU USE ONLY, Start date: 01/02/16 15:52:00 CDT, Duration: 30 day, Stop date: 02/01/16 14:51:00 CSTNotes: (Same As: Tumbabatunde) Calcium Carbonate 500 gp=394 mg elemental calcium Dose= mg calcium carbonate ( mg elemental calcium) No Longer Active 01/02/2016 [facility] potassium chloride 20 mEq, 1 tab, Route: PO, Drug form: ERTAB, PRN, Dosing Weight 104, kg, PRN Abnormal Lab Result, Start date: 01/02/16 15:52:00 CDT, Duration: 30 day, Stop date: 02/01/16 14:51:00 BARREL RIFLER, FOR ICU USE ONLYNotes: (Same as: K-Dur 20) "Do Not Crush" With food and full glass of water No Longer Active 01/02/2016 [facility] sodium phosphate 15 mmol, 250 mL, Route: IVPB, Drug form: INJ, PRN, Dosing Weight 104, kg, PRN Abnormal Lab Result, Start date: 01/02/16 15:52:00 CDT, Duration: 30 day, Stop date: 02/01/16 14:51:00 BARREL RIFLER, FOR ICU USE O NLY No Longer Active 01/02/2016 [facility] Calcium Gluconate 1 gm, 50 mL, Route: IVPB, Drug form: INJ, PRN, Dosing Weight 104, kg, PRN Abnormal Lab Result, Start date: 01/02/16 15:52:00 CDT, Duration: 30 day, Stop date: 02/01/16 14:51:00 BARREL RIFLER, FOR ICU USE ONLYNotes: WASTE: F/P - Sink; E - Municipal Trash Bin No Longer Active 01/02/2016 [facility] sodium phosphate + sodium chloride 0.9% INJ 250 mL 45 mmol, 15 mL, Route: IVPB, PRN, Dosing Weight 104, kg, PRN Abnormal Lab Result, Start date: 01/02/16 15:52:00 CDT, Duration: 30 day, Stop date: 02/01/16 14:51:00 BARREL RIFLER, FOR ICU USE ONLY No Longer Active 01/02/2016 [facility] potassium phosphate 30 mmol, 250 mL, Route: IVPB, Drug form: INJ, PRN, Dosing Weight 104, kg, PRN Abnormal Lab Result, Start date: 01/02/16 15:52:00 CDT, Duration: 30 day, Stop date: 02/01/16 14:51:00 BARREL RIFLER, FOR ICU USE ONLYNotes: (Same as: K Phosphate.) No Longer Active 01/02/2016 [facility] potassium phosphate + sodium chloride 0.9% INJ 250 mL 45 mmol, 15 mL, Route: IVPB, PRN, Dosing Weight 104, kg, PRN Abnormal Lab Result, Start date: 01/02/16 15:52:00 CDT, Duration: 30 day, Stop date: 02/01/16 14:51:00 BARREL RIFLER, FOR ICU USE ONLYNotes: (Same as: K Phosphate.) 1 mMol phoshate has 1.47 mEq potassium Infuse over 4 hours No Longer Active 01/02/2016 [facility] potassium phosphate-sodium phosphate 250 mg-280 mg-160 mg oral powder for reconstitution 2 pkt, Route: PO, Drug Form: PDR/REC, Dosing Weight 104, kg, PRN, PRN Abnormal Lab Result, FOR ICU USE ONLY, Start date: 01/02/16 15:52:00 CDT, Duration: 30 day, Stop date: 02/01/16 14:51:00 CSTNotes: (Same as: Phos-NaK) Each 1.5 gm pkt has 250mg phosphorous. Mix w/2.5oz water and stir. No Longer Active 01/02/2016 [facility] Magnesium Sulfate 2 gm, 50 mL, Route: IVPB, Drug form: INJ, PRN, Dosing Weight 104, kg, PRN Abnormal Lab Result, Start date: 01/02/16 15:52:00 CDT, Duration: 30 day, Stop date: 02/01/16 14:51:00 BARREL RIFLER, FOR ICU USE ONLYNotes: WASTE: F/P - Sink; E - Municipal Trash Bin No Longer Active 01/02/2016 [facility] Magnesium Oxide 800 mg, 2 tab, Route: PO, Drug form: TAB, PRN, Dosing Weight 104, kg, PRN Abnormal Lab Result, FOR ICU USE ONLY, Start date: 01/02/16 15:52:00 CDT, Duration: 30 day, Stop date: 02/01/16 14:51:00 CSTN otes: (Same as: Mag-Ox 400) Magnesium oxide 132ih=155sq elemental magnesium Dose=____mg magnesium oxide (___mg elemental magnesium) No Longer Active 01/02/2016 [facility] Sodium Chloride 0.9% IV 250 mL, Route: IVPB, Start date: 01/02/16 15:16:00 CDT, Duration: 30 day, Stop date: 02/01/16 14:15:00 BARREL RIFLER, PRN Line Flush No Longer Active 01/02/2016 [facility] BD Normal Saline Flush 10 mL, Route: IVP, Drug Form: INJ, PRN, PRN Line Flush, Start date: 01/02/16 15:16:00 CDT, Duration: 30 day, Stop date: 02/01/16 14:15:00 CSTNotes: (Same as: BD Posiflush) No Longer Active 01/02/2016 [facility] Levetiracetam 500 mg, Route: IVPB, ONCE, Dosing Weight 104, kg, Start date: 01/02/16 15:10:00 CDT, Stop date: 01/02/16 15:10:00 CDTNotes: Same as Keppra Mix with 100 mL NS, LR or D5W MEDICATION WASTE Product Size: 500 mg Product Wasted: _0__ mg Inactive 01/02/2016 [facility] Sodium Chloride 0.154 MEQ/ML Injectable Solution 1,000 mL, Rate: 75 ml/hr, Infuse over: 13.3 hr, Route: IV, Dosing Weight 104 kg, Total Volume: 1,000, Start date: 01/02/16 15:10:00 CDT, Duration: 30 day, Stop date: 02/01/16 15:09:00 BARREL RIFLER No Longer Active 01/02/2016 [facility] Labetalol 20 mg, Route: IVP, Drug form: INJ, ONCE, Dosing Weight 106.818, kg, Priority: STAT, Start date: 01/02/16 13:33:00 CDT, Stop date: 01/02/16 13:33:00 CDT Inactive 01/02/2016 [facility] Saline Flush 0.9% 10 mL, Route: IVP, Drug Form: INJ, Dosing Weight 106.818, kg, PRN, PRN Line Flush, Start date: 01/02/16 10:28:00 CDT, Duration: 30 day, Stop date: 02/01/16 9:27:00 CSTNotes: (Same as: BD Posiflush) Inactive 01/02/2016 [facility] Allergies, Adverse Reactions, Alerts Substance Category Reaction Severity Reaction type Status Date Reported Comments Source Immunizations Immunization Date Given Site Status Last Updated Comments Source Results Order Name Results Value Reference Range Date Interpretation Comments Source CHEM PANEL Magnesium Lvl 1.8 mg/dL 1.8 - 2.4 01/03/2016 [facility] CHEM PANEL Phosphorus 2.8 mg/dL 2.5 - 4.5 01/03/2016 [facility] ELECTROLYTES AGAP 12.8 meq/L 10.0 - 20.0 01/03/2016 [facility] ELECTROLYTES eGFR 61 mL/min/1.73m2 01/03/2016 Result Comment: The eGFR is calculated using the [...] from the National Kidney Disease Education Program (NKDEP) which additionally recommends that when the eGFR is used in patients with extremes of body mass index for purposes of drug dosing, the eGFR should be multiplied by the estimated BMI. [facility] ELECTROLYTES CO2 26 meq/L 24 - 32 01/03/2016 [facility] ELECTROLYTES Calcium Lvl 8.3 mg/dL 8.5 - 10.5 01/03/2016 [facility] ELECTROLYTES Chloride Lvl 106 meq/L 95 - 109 01/03/2016 [facility] ELECTROLYTES BUN 15 mg/dL 7 - 22 01/03/2016 [facility] ELECTROLYTES Glucose Lvl 156 mg/dL 70 - 99 01/03/2016 [facility] ELECTROLYTES Sodium Lvl 141 meq/L 135 - 145 01/03/2016 [facility] ELECTROLYTES Potassium Lvl 3.8 meq/L 3.5 - 5.1 01/03/2016 [facility] ELECTROLYTES Creatinine Lvl 1.20 mg/dL 0.50 - 1.40 01/03/2016 [facility] HEMATOLOGY MPV 9.6 fL 7.4 - 10.4 01/03/2016 [facility] HEMATOLOGY WBC 5.5 K/CMM 3.7 - 10.4 01/03/2016 [facility] HEMATOLOGY Platelet 149 K/CMM 133 - 450 01/03/2016 [facility] HEMATOLOGY RDW 12.7 % 11.5 - 14.5 01/03/2016 [facility] HEMATOLOGY MCHC 34.5 g/dL 32.0 - 36.0 01/03/2016 [facility] MCH 29.6 pg 27.0 - 31.0 01/03/2016 [facility] HEMATOLOGY MCV 85.9 fL 80.0 - 94.0 01/03/2016 [facility] HEMATOLOGY Hct 37.6 % 42.0 - 54.0 01/03/2016 [facility] HEMATOLOGY Hgb 13.0 g/dL 14.0 - 18.0 01/03/2016 [facility] HEMATOLOGY RBC 4.38 M/CMM 4.70 - 6.10 01/03/2016 [facility] HEMATOLOGY Eosinophils # 0.1 K/CMM 0.0 - 0.5 01/03/2016 [facility] HEMATOLOGY Monocytes # 0.6 K/CMM 0.0 - 0.8 01/03/2016 [facility] HEMATOLOGY Lymphocytes # 1.7 K/CMM 1.0 - 5.5 01/03/2016 [facility] HEMATOLOGY Segs-Bands # 3.1 K/CMM 1.5 - 8.1 01/03/2016 [facility] HEMATOLOGY Eosinophils 2.6 % 0.0 - 4.0 01/03/2016 [facility] HEMATOLOGY Monocytes 10.7 % 2.0 - 12.0 01/03/2016 [facility] Lymphocytes 30.8 % 20.0 - 40.0 01/03/2016 [facility] HEMATOLOGY Segs 55.5 % 45.0 - 75.0 01/03/2016 [facility] HEMATOLOGY Basophils 0.4 % 0.0 - 1.0 01/03/2016 [facility] Basophils # 0.0 K/CMM 0.0 - 0.2 01/03/2016 [facility] PARATHYROID PROFILE Ca Norm WB 1.10 mMol/L 1.05 - 1.25 01/03/2016 [facility] PARATHYROID PROFILE Ca Ion WB 1.15 mMol/L 1.05 - 1.25 01/03/2016 [facility] URINE AND STOOL UA Urobilinogen null 0.1 - 1.0 01/02/2016 [facility] URINE AND STOOL UA WBC null 0 - 5 01/02/2016 [facility] URINE AND STOOL UA RBC null 0 - 2 01/02/2016 [facility] URINE AND STOOL UA Mucus Few /LPF None Seen /LPF 01/02/2016 [facility] URINE AND STOOL UA Sq Epi Occasional /LPF Few /LPF 01/02/2016 [facility] URINE AND STOOL UA Nitrite Negative (01/02/16 5:14 PM) Negative 01/02/2016 [facility] URINE AND STOOL UA Leuk Est Negative (01/02/16 5:14 PM) Negative 01/02/2016 [facility] URINE AND STOOL UA Bili Negative *NA* (01/02/16 5:14 PM) Negative 01/02/2016 [facility] URINE AND STOOL UA Blood Negative (01/02/16 5:14 PM) Negative 01/02/2016 [facility] URINE AND STOOL UA Color Light Yellow *NA* (01/02/16 5:14 PM) Yellow 01/02/2016 [facility] URINE AND STOOL UA Turbidity Clear (01/02/16 5:14 PM) Clear 01/02/2016 [facility] URINE AND STOOL UA pH 5.0 5.0 - 8.0 01/02/2016 [facility] URINE AND STOOL UA Ketones Negative mg/dL Negative mg/dL 01/02/2016 [facility] URINE AND STOOL UA Protein Negative mg/dL Negative mg/dL 01/02/2016 [facility] URINE AND STOOL UA Glucose 50 mg/dL Negative mg/dL 01/02/2016 [facility] URINE AND STOOL UA Spec Grav 1.011 <=1.030 01/02/2016 [facility] BACTERIAL - SEROLOGY MRSA by PCR Negative (01/02/16 4:13 PM) 01/02/2016 [facility] BLOOD BANK RESULTS ABO/Rh O POS 01/02/2016 [facility] BLOOD BANK RESULTS Antibody Scrn Negative (01/02/16 3:38 PM) 01/02/2016 [facility] CHEM PANEL Bili Indirect Unable to Calculate 0.0 - 1.0 01/02/2016 [facility] CHEM PANEL Bili Direct null 0.0 - 0.3 01/02/2016 [facility] CHEM PANEL Bili Total 0.3 mg/dL 0.2 - 1.3 01/02/2016 [facility] CHEM PANEL Alk Phos 101 unit/L 39 - 136 01/02/2016 [facility] CHEM PANEL AST 15 unit/L 0 - 37 01/02/2016 [facility] CHEM PANEL ALT 21 unit/L 0 - 65 01/02/2016 [facility] CHEM PANEL A/G Ratio 0.9 0.7 - 1.6 01/02/2016 [facility] CHEM PANEL Globulin 3.5 g/dL 2.7 - 4.2 01/02/2016 [facility] CHEM PANEL Total Protein 6.8 g/dL 6.4 - 8.4 01/02/2016 [facility] CHEM PANEL Albumin Lvl 3.3 g/dL 3.5 - 5.0 01/02/2016 [facility] CHEM PANEL Phosphorus 2.7 mg/dL 2.5 - 4.5 01/02/2016 [facility] CHEM PANEL Magnesium Lvl 1.7 mg/dL 1.8 - 2.4 01/02/2016 [facility] ELECTROLYTES AGAP 12.6 meq/L 10.0 - 20.0 01/02/2016 [facility] ELECTROLYTES eGFR 61 mL/min/1.73m2 01/02/2016 Result Comment: The eGFR is calculated using the [...] from the National Kidney Disease Education Program (NKDEP) which additionally recommends that when the eGFR is used in patients with extremes of body mass index for purposes of drug dosing, the eGFR should be multiplied by the estimated BMI. [facility] ELECTROLYTES Glucose Lvl 199 mg/dL 70 - 99 01/02/2016 [facility] ELECTROLYTES Potassium Lvl 3.6 meq/L 3.5 - 5.1 01/02/2016 [facility] ELECTROLYTES BUN 13 mg/dL 7 - 22 01/02/2016 [facility] ELECTROLYTES Creatinine Lvl 1.20 mg/dL 0.50 - 1.40 01/02/2016 [facility] ELECTROLYTES Sodium Lvl 140 meq/L 135 - 145 01/02/2016 [facility] ELECTROLYTES CO2 26 meq/L 24 - 32 01/02/2016 [facility] ELECTROLYTES Calcium Lvl 8.3 mg/dL 8.5 - 10.5 01/02/2016 [facility] ELECTROLYTES Chloride Lvl 105 meq/L 95 - 109 01/02/2016 [facility] HEMATOLOGY Basophils # 0.0 K/CMM 0.0 - 0.2 01/02/2016 [facility] HEMATOLOGY Segs-Bands # 3.3 K/CMM 1.5 - 8.1 01/02/2016 [facility] HEMATOLOGY Lymphocytes # 1.7 K/CMM 1.0 - 5.5 01/02/2016 [facility] HEMATOLOGY Eosinophils 2.0 % 0.0 - 4.0 01/02/2016 [facility] HEMATOLOGY Monocytes # 0.5 K/CMM 0.0 - 0.8 01/02/2016 [facility] HEMATOLOGY Eosinophils # 0.1 K/CMM 0.0 - 0.5 01/02/2016 [facility] HEMATOLOGY Basophils 0.4 % 0.0 - 1.0 01/02/2016 [facility] Monocytes 9.0 % 2.0 - 12.0 01/02/2016 [facility] Lymphocytes 30.2 % 20.0 - 40.0 01/02/2016 [facility] Segs 58.4 % 45.0 - 75.0 01/02/2016 [facility] INR 1.05 0.85 - 1.17 01/02/2016 [facility] PTT 32.6 s 22.9 - 35.8 01/02/2016 [facility] PT 13.9 s 12.0 - 14.7 01/02/2016 [facility] MPV 8.9 fL 7.4 - 10.4 01/02/2016 [facility] RBC 4.62 M/CMM 4.70 - 6.10 01/02/2016 [facility] MCH 28.8 pg 27.0 - 31.0 01/02/2016 [facility] MCV 85.7 fL 80.0 - 94.0 01/02/2016 [facility] Hct 39.6 % 42.0 - 54.0 01/02/2016 [facility] Hgb 13.3 g/dL 14.0 - 18.0 01/02/2016 [facility] Platelet 149 K/CMM 133 - 450 01/02/2016 [facility] RDW 12.7 % 11.5 - 14.5 01/02/2016 [facility] MCHC 33.6 g/dL 32.0 - 36.0 01/02/2016 [facility] WBC 5.7 K/CMM 3.7 - 10.4 01/02/2016 [facility] PARATHYROID PROFILE Ca Norm WB 1.11 mMol/L 1.05 - 1.25 01/02/2016 [facility] PARATHYROID PROFILE Ca Ion WB 1.13 mMol/L 1.05 - 1.25 01/02/2016 [facility] Chest 1view DX Chest 1view DX Chest 1view DX CLINICAL HISTORY:Respiratory distress COMPARISON: 05/04/2012 FINDINGS/IMPRESSION: Limited AP portable study. Support Lines/Devices: none Lungs: Mild pulmonary underinflation. No consolidation, effusion or any significant pulmonary edema. Cardiomediastinum: Cardiomediastinal silhouette is stable. Poststernotomy changes. Bone and Soft Tissues: No significant abnormality is evident. Multiple EKG leads and other wires project over the patient's chest. SL: [id number] 01/02/2016 - - Read by: Efrain Perry MD Dictated Date/time: 01/02/16 16:21 Electronically Signed by: Efrain Perry MD 01/02/16 16:22 FINAL REPORT [facility] Brain wo contrast CT Brain wo contrast CT Brain wo contrast CT 01/02/2016 3:10 PM CDT Ordering Physician: Fatou Cheng DO CLINICAL HISTORY: Pain Post Trauma; COMPARISON: CT head earlier today; MRI brain April 2012 TECHNIQUE: Axial images were obtained from the foramen magnum to the vertex without the use of intravenous contrast on a multidetector CT. Coronal and sagittal reformations were created. FINDINGS: INTRACRANIAL VAULT: Chronic mild bifrontal superior subdural effusions are present. No acute intracranial hemorrhage or secondary signs of increased intracranial pressure are present. No large territorial ischemic infarction is present. Oral small lacunar infarction is present in the right basal ganglia. Ventricles, cisterns, and sulci are normal. No intracranial mass or midline shift is present. Intracranial atherosclerotic calcific disease is present. ORBITS, MASTOIDS AND PARANASAL SINUSES: Visualized orbits are normal. Sinuses and air cells are clear. CALVARIUM: Calvarium is intact. IMPRESSION: No acute abnormality of the brain. Probable late subacute or chronic mild or bifrontal superior subdural effusion/prominence. : [id number] 01/02/2016 - - Read by: Suzy Telles MD Dictated Date/time: 01/02/16 16:32 Electronically Signed by: Suzy Telles MD 01/02/16 16:38 FINAL REPORT [facility] CARDIAC ENZYMES CK MB Index 2.4 0.0 - 2.5 01/02/2016 [facility] CARDIAC ENZYMES Troponin-I null 0.00 - 0.40 01/02/2016 [facility] CARDIAC ENZYMES Total CK 85 unit/L 12 - 191 01/02/2016 [facility] CARDIAC ENZYMES CK MB 2.0 ng/mL 0.5 - 3.6 01/02/2016 [facility] CHEM PANEL eGFR 55 mL/min/1.73m2 01/02/2016 Result Comment: The eGFR is calculated using the [...] from the National Kidney Disease Education Program (NKDEP) which additionally recommends that when the eGFR is used in patients with extremes of body mass index for purposes of drug dosing, the eGFR should be multiplied by the estimated BMI. [facility] CHEM PANEL A/G Ratio 1.1 0.7 - 1.6 01/02/2016 [facility] CHEM PANEL Globulin 3.6 g/dL 2.7 - 4.2 01/02/2016 [facility] CHEM PANEL B/C Ratio 11 6 - 25 01/02/2016 [facility] CHEM PANEL Total Protein 7.4 g/dL 6.4 - 8.4 01/02/2016 [facility] CHEM PANEL Calcium Lvl 8.7 mg/dL 8.5 - 10.5 01/02/2016 [facility] CHEM PANEL CO2 23 meq/L 24 - 32 01/02/2016 [facility] CHEM PANEL Chloride Lvl 104 meq/L 95 - 109 01/02/2016 [facility] CHEM PANEL AGAP 14.9 meq/L 10.0 - 20.0 01/02/2016 [facility] CHEM PANEL Bili Total 0.5 mg/dL 0.2 - 1.3 01/02/2016 [facility] CHEM PANEL Alk Phos 98 unit/L 39 - 136 01/02/2016 [facility] CHEM PANEL AST 22 unit/L 0 - 37 01/02/2016 [facility] CHEM PANEL ALT 23 unit/L 0 - 65 01/02/2016 [facility] CHEM PANEL Potassium Lvl 3.9 meq/L 3.5 - 5.1 01/02/2016 [facility] CHEM PANEL Sodium Lvl 138 meq/L 135 - 145 01/02/2016 [facility] CHEM PANEL Creatinine Lvl 1.30 mg/dL 0.50 - 1.40 01/02/2016 [facility] CHEM PANEL BUN 14 mg/dL 7 - 22 01/02/2016 [facility] CHEM PANEL Albumin Lvl 3.8 g/dL 3.5 - 5.0 01/02/2016 [facility] CHEM PANEL Glucose Lvl 230 mg/dL 70 - 99 01/02/2016 [facility] HEMATOLOGY Basophils # 0.1 K/CMM 0.0 - 0.2 01/02/2016 [facility] HEMATOLOGY Monocytes # 0.5 K/CMM 0.0 - 0.8 01/02/2016 [facility] HEMATOLOGY Eosinophils # 0.1 K/CMM 0.0 - 0.5 01/02/2016 [facility] HEMATOLOGY Segs 59.7 % 45.0 - 75.0 01/02/2016 [facility] HEMATOLOGY Lymphocytes 27.0 % 20.0 - 40.0 01/02/2016 [facility] HEMATOLOGY Monocytes 9.6 % 2.0 - 12.0 01/02/2016 [facility] HEMATOLOGY Eosinophils 2.6 % 0.0 - 4.0 01/02/2016 [facility] HEMATOLOGY Basophils 1.1 % 0.0 - 1.0 01/02/2016 [facility] HEMATOLOGY Segs-Bands # 3.0 K/CMM 1.5 - 8.1 01/02/2016 [facility] HEMATOLOGY Lymphocytes # 1.4 K/CMM 1.0 - 5.5 01/02/2016 [facility] HEMATOLOGY RBC 5.16 M/CMM 4.70 - 6.10 01/02/2016 [facility] HEMATOLOGY WBC 5.0 K/CMM 3.7 - 10.4 01/02/2016 [facility] HEMATOLOGY Hgb 14.7 g/dL 14.0 - 18.0 01/02/2016 [facility] HEMATOLOGY MCHC 33.5 g/dL 32.0 - 36.0 01/02/2016 [facility] HEMATOLOGY RDW 12.9 % 11.5 - 14.5 01/02/2016 [facility] HEMATOLOGY Hct 43.8 % 42.0 - 54.0 01/02/2016 [facility] HEMATOLOGY MCV 85.1 fL 80.0 - 94.0 01/02/2016 [facility] HEMATOLOGY MCH 28.5 pg 27.0 - 31.0 01/02/2016 [facility] HEMATOLOGY MPV 9.5 fL 7.4 - 10.4 01/02/2016 [facility] HEMATOLOGY Platelet 162 K/CMM 133 - 450 01/02/2016 [facility] HEMATOLOGY PTT 33.2 s 22.9 - 35.8 01/02/2016 [facility] HEMATOLOGY PT 13.4 s 12.0 - 14.7 01/02/2016 [facility] HEMATOLOGY INR 1.00 0.85 - 1.17 01/02/2016 [facility] Brain wo contrast CT Brain wo contrast CT I have reviewed this examination and concur with the interpretation. Patient Name: FRANKIE NANCE : 1945; Age: 70 years y/o Male MR: [id number] Study: Brain wo contrast CT 01/02/2016 10:28 AM CDT Clinical Indication: Headache with Dizziness and Giddiness; Comparison: Brain CT 05/04/2012. TECHNIQUE: CT images were obtained from the foramen magnum to the vertex without the use of intravenous contrast on a multidetector CT. Coronal and sagittal reconstructions were obtained. FINDINGS: BRAIN PARENCHYMA: 10 x 6 mm chronic lacunar infarct right basal ganglia extending to the right hidalgo radiata. There is no acute infarct or hemorrhage appreciated. Bilateral frontal and convexity low-density subdural collections are present. (On the right, up to 14 mm and on the left up to 12 mm thickness.) There is no hyperdense acute hemorrhagic component otherwise present. No midline shift. The basal cisterns remain patent. VENTRICLES: Ventricles and sulci are within normal limits for the patient's age. ORBITS, MASTOIDS AND PARANASAL SINUSES: The visualized orbits and paranasal sinuses are unremarkable. The mastoid air cells are clear. SKULL: There are no osseous abnormalities. If there is further concern for intracranial pathology or acute stroke, MRI of the brain may be performed for complete assessment. 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 No acute hemorrhagic component. Right basal ganglia chronic lacunar infarct. No other specific acute finding. SL: [id number] 01/02/2016 - - Read by: Chevy Hidalgo MD Dictated Date/time: 01/02/16 11:18 Electronically Signed by: Chevy Hidalgo MD 01/02/16 11:20 FINAL REPORT - - Read by: Rocco Abarca MD Dictated Date/time: 01/02/16 11:03 Electronically Signed by: Rocco Abarca MD 01/02/16 11:16 FINAL REPORT [facility] Vital Signs Vital Sign Value Date Comments Source Respitory Rate 20 01/03/2016 [facility] Heart Rate 73 01/03/2016 [facility] Systolic (mm Hg) 154 01/03/2016 [facility] Diastolic (mm Hg) 74 01/03/2016 [facility] Temperature Oral (F) 97.3 F 01/03/2016 [facility] Respitory Rate 20 01/03/2016 [facility] Systolic (mm Hg) 159 01/03/2016 [facility] Diastolic (mm Hg) 73 01/03/2016 [facility] Temperature Oral (F) 99.3 F 01/03/2016 [facility] Heart Rate 76 01/03/2016 [facility] Temperature Oral (F) 98.2 F 01/03/2016 [facility] Respitory Rate 20 01/03/2016 [facility] Heart Rate 75 01/03/2016 [facility] Systolic (mm Hg) 157 01/03/2016 [facility] Diastolic (mm Hg) 80 01/03/2016 [facility] Weight 104 01/02/2016 [facility] BMI Calculated 30.25 01/02/2016 [facility] Height 185.42 cm 01/02/2016 [facility] Systolic (mm Hg) 190 01/02/2016 [facility] Diastolic (mm Hg) 91 01/02/2016 [facility] Respitory Rate 18 01/02/2016 [facility] Systolic (mm Hg) 158 01/02/2016 [facility] Diastolic (mm Hg) 72 01/02/2016 [facility] Respitory Rate 18 01/02/2016 [facility] Respitory Rate 18 01/02/2016 [facility] Systolic (mm Hg) 179 01/02/2016 [facility] Diastolic (mm Hg) 72 01/02/2016 [facility] Weight 106.818 01/02/2016 [facility] BMI Calculated 31.07 01/02/2016 [facility] Heart Rate 82 01/02/2016 [facility] Temperature Oral (F) 98.0 F 01/02/2016 [facility] Height 185.42 cm 01/02/2016 [facility] Encounters Location Location Details Encounter Type Encounter Number Reason For Visit Attending Provider ADM Date DC Date Status Source [facility] Emergency [id number] Warren Posadas 01/02/2016 01/02/2016 [facility] Inpatient [id number] Marcella Kidd 01/02/2016 01/03/2016 [facility] Procedures Procedure Code Date Perfomer Comments Source CABG - Coronary artery bypass graft [id number] [facility] Tonsillectomy [id number] [facility] CABG - Coronary artery bypass graft [id number] [facility] Tonsillectomy [id number] [facility]
[2018-07-08] MEDS ORDERED: FLUORESCEIN SOD(OPTH) 1 MG STRP ONE (01:19)
[2018-07-08] MEDS ORDERED: TETRACAINE HCL 0.5% OPTH SOLN 4 ML BTL ONE (01:19)
[2018-07-08] MEDS ORDERED: EYE IRRIGATION (OPTH) 120 ML BTL ONE (01:19)
[2018-07-08 01:37] VITALS: BP 160/76
== END 2018-07-08 01:37 | disposition left against medical advice (07) ==
LOC: ER 00:33
DX: Z53.21 Procedure and treatment not carried out due to patient leaving prior to being seen by health care provider (principal); H57.12 Ocular pain, left eye